=== PATIENT | female | born 1995 | race African-American/Black ===

== ENCOUNTER 2016-09-10 11:19 | Emergency (ER) | payer OTHER ==
--- NOTE | 2016-09-10 11:55 | EDDOCDS ---
Nurse's Notes [facility] Name: Inez Swan Age: 21 yrs Sex: Female : 1995 Arrival Date: 09/10/2016 Time: 11:19 Bed TR7 Private MD: [place] [facility] [place]: Dysuria Presentation: 09/10 11:24 Presenting complaint: Patient states: "I've been having a little burning with urination jc4 and a little vaginal discharge for the past couple of days". Pt states has colorless, watery scentless discharge. Adult Sepsis Screening: The patient does not have new or worsening altered mentation. Patient's respiratory rate is less than 22. Systolic blood pressure is greater than 100. Patient has a qSOFA score of 0- Negative Sepsis Screen. Suicide/Homicide risk assessment- the patient denies having any suicidal and/or homicidal ideations and does not present with any other emotional, behavioral or mental health complaints. 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 Transition of care: patient was not received from another setting of care. 11:24 Acuity: STEVO Level 4 jc4 11:24 Method Of Arrival: Walkin/Carried/Asstd jc4 Triage Assessment: 11:25 General: Appears in no apparent distress. jc4 11:25 Pain: Pain currently is 5 out of 10 on a pain scale. HIV screening NA for this visit jc4 Offered previously. 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 Probiotic oral oral 2 cap daily (Last dose: 09/09/2016) - PMHx: none; - PSHx: none; - Social history: Smoking status: Patient states was never smoker of tobacco. No barriers to communication noted, The patient speaks fluent Hebrew. - Family history: Not pertinent. - : The pt / caregiver states he / she is not on anticoagulants. Home medication list is obtained from the patient. - Exposure Risk Screening:: None identified. Screenin:48 Screening information is obtained from the patient. Fall risk: No risks identified. js13 Assistance ADL's: requires no assistance with activities of daily living. Abuse/DV Screen: The patient / caregiver reports he/she is: not in a situation that causes fear, pain or injury. Nutritional screening: No deficits noted. Advance Directives: There is no active DNR order. home support is adequate. Assessment: 11:48 General: Appears in no apparent distress, Behavior is appropriate for age, cooperative. js13 Pain: Pain currently is 3 out of 10 on a pain scale. Neurological: Level of Consciousness is awake, alert. Respiratory: No deficits noted. : Reports burning with urination. Derm: Skin is pink, warm & dry. Vital Signs: 11:21 BP 128 / 61; Pulse 77; Resp 18; Temp 98.7; Pulse Ox 99% ; Weight 63.5 kg; Height 5 ft. elp 3 in. (160.02 cm); Pain 5/10; 11:21 Body Mass Index 24.80 (63.50 kg, 160.02 cm) [facility] Vitals: 11:21 Log In Time: September 10, 2016 at 11:19. [facility] ED Course: 11:21 Patient visited by Betzaida Myrick PCA. elp 11:21 MARY Arana is Private Physician. elp 11:21 Patient moved to Waiting elp 11:22 Patient visited by Betzaida Myrick PCA. elp 11:22 Patient moved to Pre RCE elp 11:25 Triage Initiated jc4 11:26 Patient moved to Triage 1 jc4 11:30 [facility] btw 11:30 Harinder Unger MD is Attending Physician. btw 11:30 Patient visited by Armando Negrete PA. btw 11:46 Urine Culture Sent. js13 11:48 The patient / caregiver is instructed regarding the plan of care and ED course. js13 11:48 No IV's were initiated during this patient's visit. No procedures done that require js13 assistance. 11:49 MARY Arana is Referral Physician. btw 11:49 [facility] Payment Agreement was scanned into [employer] and attached to record. lg 11:52 Patient moved to [address] Point of Care Testing: Urine Dip: 11:47 pH: 5; ; Specific [place]: 1.025; Ketones: Negative; Glucose: Negative; Protein: Trace; js13 Leukocytes: Positive (+); Nitrite: Negative ; Blood: Non Hemolyzed Trace; Bilirubin: Negative ; Urobilinogen: Normal Ranges: Order Results: There are currently no results for this order. Outcome: 11:48 Discharge Assessment: Patient awake, alert and oriented x 3. No cognitive and/or js13 functional deficits noted. Patient verbalized understanding of disposition instructions. patient administered narcotics - no. The following High Risk Discharge criteria are identified: None. Discharged to home ambulatory. Condition: stable. Discharge instructions given to patient, Instructed on discharge instructions, follow up and referral plans. medication usage, Demonstrated understanding of instructions, medications, Pt was receptive of discharge instructions/ teaching. Prescriptions given X 1. No special radiology studies were completed. Property :Personal belongings accompany Pt. 11:49 Discharge ordered by Provider. btw 11:54 Patient left the ED. js13 Signatures: Jessica Valdez, RN RN Shabbir Morales, Armando Huff lg, PA PA btw Ayah Hummel, RN RN jc4 Ayah Godoy,RN RN js13 Betzaida Myrick, SATISH ELECTROPLATING LABORER elp NAKIA
--- NOTE | 2016-09-10 11:55 | EDDOCDS ---
Physician Documentation [facility] Name: Inez Swan Age: 21 yrs Sex: Female : 1995 Arrival Date: 09/10/2016 Time: 11:19 Bed TR7 Private MD: MARY Arana Disposition: 09/10/16 11:49 Discharged to Home/Self Care. Impression: Dysuria. - Condition is Stable. - Discharge Instructions: Dysuria. - Prescriptions for Macrobid 100 mg Oral Capsule - take 100 milligram by ORAL route every 12 hours for 10 days; 20 capsule. - Medication Reconciliation, Local Pharmacy Hours form. - Follow up: MARY Arana; When: 2 - 3 days; Reason: Further diagnostic work-up, Recheck today's complaints, Continuance of care. - Problem is new. - Symptoms are unchanged. Historical: - Allergies: no known allergies; - Home Meds: 1. Probiotic oral oral 2 cap daily (Last dose: 09/09/2016) - PMHx: none; - PSHx: none; - Social history: Smoking status: Patient states was never smoker of tobacco. No barriers to communication noted, The patient speaks fluent Luxembourgish. - Family history: Not pertinent. - : The pt / caregiver states he / she is not on anticoagulants. Home medication list is obtained from the patient. - Exposure Risk Screening:: None identified. 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 3 in. (160.02 cm); Pain 5/10; 11:21 Body Mass Index 24.80 (63.50 kg, 160.02 cm) elp MDM: 11:25 Urine Dip ordered. btw 11:25 Urine Culture Ordered. EDMS 11:44 Financial registration complete. lg 11:49 [facility] Payment Agreement was scanned into [employer] and attached to record. Point of Care Testing: Urine Dip: 11:47 pH: 5; ; Specific [place]: 1.025; Ketones: Negative; Glucose: Negative; Protein: Trace; js13 Leukocytes: Positive (+); Nitrite: Negative ; Blood: Non Hemolyzed Trace; Bilirubin: Negative ; Urobilinogen: Normal Ranges: Signatures: Dispatcher [employer] EDShabbir Macdonald, Eloy Reg lg Armando Negrete PA PA btw Castle, Jennifer, RN RN jc4 Ayah Godoy RN RN js13 The chart was reviewed and I authenticate all verbal orders and agree with the evaluation and treatment provided.Attachments: 11:49 [facility] Payment Agreement lg MTDD
--- NOTE | 2016-09-13 10:58 | EDDOCDS ---
Nurse's Notes [facility] Name: Inez Swan Age: 21 yrs Sex: Female : 1995 Arrival Date: 09/10/2016 Time: 11:19 Bed TR7 Private MD: Yasmeen [facility] Diagnosis: Dysuria Presentation: 09/10 11:24 Presenting complaint: Patient states: "I've been having a little burning with urination jc4 and a little vaginal discharge for the past couple of days". Pt states has colorless, watery scentless discharge. Adult Sepsis Screening: The patient does not have new or worsening altered mentation. Patient's respiratory rate is less than 22. Systolic blood pressure is greater than 100. Patient has a qSOFA score of 0- Negative Sepsis Screen. Suicide/Homicide risk assessment- the patient denies having any suicidal and/or homicidal ideations and does not present with any other emotional, behavioral or mental health complaints. 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 Transition of care: patient was not received from another setting of care. 11:24 Acuity: STEVO Level 4 jc4 11:24 Method Of Arrival: Walkin/Carried/Asstd jc4 Triage Assessment: 11:25 General: Appears in no apparent distress. jc4 11:25 Pain: Pain currently is 5 out of 10 on a pain scale. 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 Probiotic oral oral 2 cap daily (Last dose: 09/09/2016) - PMHx: none; - PSHx: none; - Social history: Smoking status: Patient states was never smoker of tobacco. No barriers to communication noted, The patient speaks fluent Kiswahili. - Family history: Not pertinent. - : The pt / caregiver states he / she is not on anticoagulants. Home medication list is obtained from the patient. - Exposure Risk Screening:: None identified. Screenin:48 Screening information is obtained from the patient. Fall risk: No risks identified. js13 Assistance ADL's: requires no assistance with activities of daily living. Abuse/DV Screen: The patient / caregiver reports he/she is: not in a situation that causes fear, pain or injury. Nutritional screening: No deficits noted. Advance Directives: There is no active DNR order. home support is adequate. Assessment: 11:48 General: Appears in no apparent distress, Behavior is appropriate for age, cooperative. js13 Pain: Pain currently is 3 out of 10 on a pain scale. Neurological: Level of Consciousness is awake, alert. Respiratory: No deficits noted. : Reports burning with urination. Derm: Skin is pink, warm & dry. Vital Signs: 11:21 BP 128 / 61; Pulse 77; Resp 18; Temp 98.7; Pulse Ox 99% ; Weight 63.5 kg; Height 5 ft. elp 3 in. (160.02 cm); Pain 5/10; 11:21 Body Mass Index 24.80 (63.50 kg, 160.02 cm) [facility] Vitals: 11:21 Log In Time: September 10, 2016 at 11:19. [facility] ED Course: 11:21 Patient visited by Betzaida Myrick PCA. elp 11:21 MARY Arana is Private Physician. elp 11:21 Patient moved to Waiting elp 11:22 Patient visited by Betziada Myrick PCA. elp 11:22 Patient moved to Pre RCE elp 11:25 Triage Initiated jc4 11:26 Patient moved to Triage 1 jc4 11:30 [facility] btw 11:30 Harinder Unger MD is Attending Physician. btw 11:30 Patient visited by Armando Negrete PA. btw 11:46 Urine Culture Sent. js13 11:48 The patient / caregiver is instructed regarding the plan of care and ED course. js13 11:48 No IV's were initiated during this patient's visit. No procedures done that require 13 assistance. 11:49 MARY Arana is Referral Physician. btw 11:49 [facility] Payment Agreement was scanned into [employer] and attached to record. lg 11:52 Patient moved to TR7 dls 13:39 T-Sheet-- Draft Copy was scanned into [employer] and attached to record. Point of Care Testing: Urine Dip: 11:47 pH: 5; ; Specific [place]: 1.025; Ketones: Negative; Glucose: Negative; Protein: Trace; js13 Leukocytes: Positive (+); Nitrite: Negative ; Blood: Non Hemolyzed Trace; Bilirubin: Negative ; Urobilinogen: Normal Ranges: Order Results: Lab Order: Urine Culture; SPEC'M 09/10/16 11:39 Test: URINE CULTURE; Value: URINE CULTURE RESULT NO GROWTH; Status: F Outcome: 11:48 Discharge Assessment: Patient awake, alert and oriented x 3. No cognitive and/or js13 functional deficits noted. Patient verbalized understanding of disposition instructions. patient administered narcotics - no. The following High Risk Discharge criteria are identified: None. Discharged to home ambulatory. Condition: stable. Discharge instructions given to patient, Instructed on discharge instructions, follow up and referral plans. medication usage, Demonstrated understanding of instructions, medications, Pt was receptive of discharge instructions/ teaching. Prescriptions given X 1. No special radiology studies were completed. Property :Personal belongings accompany Pt. 11:49 Discharge ordered by Provider. btw 11:54 Patient left the ED. js13 Signatures: Jessica Valdez, RN RN dls Phyllis Barrow, Reg Reg gb Shabbir Louis, Reg Reg lg Armando Negrete PA PA btw Ayah Hummel, RN RN jc4 Ayah Godoy,RN RN js13 Betzaida Myrick, ANGLE SHEAR OPERATOR ANGLE SHEAR OPERATOR elp Chart Complete MTDD
--- NOTE | 2016-09-13 10:58 | EDDOCDS ---
Physician Documentation [facility] Name: Inez Swan Age: 21 yrs Sex: Female : 1995 Arrival Date: 09/10/2016 Time: 11:19 Bed TR7 Private MD: MARY Arana Disposition: 09/10/16 11:49 Discharged to Home/Self Care. Impression: Dysuria. - Condition is Stable. - Discharge Instructions: Dysuria. - Prescriptions for Macrobid 100 mg Oral Capsule - take 100 milligram by ORAL route every 12 hours for 10 days; 20 capsule. - Medication Reconciliation, Local Pharmacy Hours form. - Follow up: MARY Arana; When: 2 - 3 days; Reason: Further diagnostic work-up, Recheck today's complaints, Continuance of care. - Problem is new. - Symptoms are unchanged. Historical: - Allergies: no known allergies; - Home Meds: 1. Probiotic oral oral 2 cap daily (Last dose: 09/09/2016) - PMHx: none; - PSHx: none; - Social history: Smoking status: Patient states was never smoker of tobacco. No barriers to communication noted, The patient speaks fluent Uzbek. - Family history: Not pertinent. - : The pt / caregiver states he / she is not on anticoagulants. Home medication list is obtained from the patient. - Exposure Risk Screening:: None identified. 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 3 in. (160.02 cm); Pain 5/10; 11:21 Body Mass Index 24.80 (63.50 kg, 160.02 cm) elp MDM: 11:25 Urine Dip ordered. btw 11:25 Urine Culture Ordered. EDMS 11:44 Financial registration complete. lg 11:49 [facility] Payment Agreement was scanned into [employer] and attached to record. lg 13:39 T-Sheet-- Draft Copy was scanned into [employer] and attached to record. Point of Care Testing: Urine Dip: 11:47 pH: 5; ; Specific [place]: 1.025; Ketones: Negative; Glucose: Negative; Protein: Trace; js13 Leukocytes: Positive (+); Nitrite: Negative ; Blood: Non Hemolyzed Trace; Bilirubin: Negative ; Urobilinogen: Normal Ranges: Signatures: Dispatcher [employer] EDMS Phyllis Barrow, Reg Reg gb LizzieShabbir mason, Reg Reg lg Armando Negrete PA PA btw Castle, Jennifer, RN RN jc4 Ayah Godoy RN RN js13 The chart was reviewed and I authenticate all verbal orders and agree with the evaluation and treatment provided.Attachments: 11:49 [facility] Payment Agreement lg 13:39 T-Sheet-- Draft Copy gb Chart Complete MTDD
--- NOTE | 2016-09-13 10:58 | EDDOCDS ---
Physician Documentation [facility] Name: Inez Swan Age: 21 yrs Sex: Female : 1995 Arrival Date: 09/10/2016 Time: 11:19 Bed TR7 Private MD: MARY Arana Disposition: 09/10/16 11:49 Discharged to Home/Self Care. Impression: Dysuria. - Condition is Stable. - Discharge Instructions: Dysuria. - Prescriptions for Macrobid 100 mg Oral Capsule - take 100 milligram by ORAL route every 12 hours for 10 days; 20 capsule. - Medication Reconciliation, Local Pharmacy Hours form. - Follow up: MARY Arana; When: 2 - 3 days; Reason: Further diagnostic work-up, Recheck today's complaints, Continuance of care. - Problem is new. - Symptoms are unchanged. Historical: - Allergies: no known allergies; - Home Meds: 1. Probiotic oral oral 2 cap daily (Last dose: 09/09/2016) - PMHx: none; - PSHx: none; - Social history: Smoking status: Patient states was never smoker of tobacco. No barriers to communication noted, The patient speaks fluent Greek. - Family history: Not pertinent. - : The pt / caregiver states he / she is not on anticoagulants. Home medication list is obtained from the patient. - Exposure Risk Screening:: None identified. 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 3 in. (160.02 cm); Pain 5/10; 11:21 Body Mass Index 24.80 (63.50 kg, 160.02 cm) elp MDM: 11:25 Urine Dip ordered. btw 11:25 Urine Culture Ordered. EDMS 11:44 Financial registration complete. lg 11:49 [facility] Payment Agreement was scanned into [employer] and attached to record. lg 13:39 T-Sheet-- Draft Copy was scanned into [employer] and attached to record. Point of Care Testing: Urine Dip: 11:47 pH: 5; ; Specific [place]: 1.025; Ketones: Negative; Glucose: Negative; Protein: Trace; js13 Leukocytes: Positive (+); Nitrite: Negative ; Blood: Non Hemolyzed Trace; Bilirubin: Negative ; Urobilinogen: Normal Ranges: Signatures: Dispatcher [employer] EDMS Phyllis Barrow, Reg Reg gb LizzieShabbir mason, Reg Reg lg Armando Negrete PA PA btw Castle, Jennifer, RN RN jc4 Ayah Godoy RN RN js13 The chart was reviewed and I authenticate all verbal orders and agree with the evaluation and treatment provided.Attachments: 11:49 [facility] Payment Agreement lg 13:39 T-Sheet-- Draft Copy gb Chart Complete MTDD
== END 2016-09-10 11:54 | disposition home or self-care (01) ==
LOC: M ED 11:19
DX: N30.90 Cystitis, unspecified without hematuria (principal)

== ENCOUNTER → 2016-09-10 | Outpatient (REF) | payer OTHER ==
[~2016-09-10] MED LIST: ACET50TA PO; COLA100C PO; DOCU10CA PO; IBUP60TA PO; IBUP80TA PO; VALT500T PO; VITAPRTA PO
== END ==
LOC: M SFHCLERA 14:26
PROVIDERS: ATTEND Nurse Practitioner Family
DX: N89.8 Other specified noninflammatory disorders of vagina (principal)